=== PATIENT | male | born 1955 | race Caucasian/White ===

== ENCOUNTER 2016-12-09 16:20 | Emergency (ER) | payer BC ==
[2016-12-09] MEDS ORDERED: NITROGLYCERIN 0.4 MG/TAB BTL SL PRN (16:36)
--- OUTSIDE RECORDS SUMMARY | 2016-12-09 16:47 | XMS REPORT | Continuity of Care Document ---
:1955 Author Organization [facility] ([facility]) Address [address] [place] [address] Phone [phone] Care Team Providers Name Role Phone Rojelio Fraire Primary Care Provider [phone] Source Comments This disclosure is being made pursuant to the Care Everywhere program, applicable federal and state laws, and may not contain all informaitonavailable regarding this patient.[facility] ([facility]) Active Allergies and Adverse Reactions No Known Allergies Current Medications Prescription Sig. Disp. Refills Start Date End Date Status lisinopril 20 mg Take 20 mg by mouth Active tablet daily. levothyroxine 100 Take 112 mcg by mouth Active mcg tablet every morning before breakfast. testosterone Inject 200 mg Active enanthate intramuscularly every (DELATESTRYL) 200 14 days. Not taking mg/mL injection omega-3 fatty acids Take 2 g by mouth 2 Active (lovaZA) 1 gram times daily. Not capsule taking zolpiDEM 5 mg Take 5 mg by mouth at Active tablet bedtime as needed. LOVASTATIN PO Take 20 mg by mouth Active daily. gabapentin 300 mg Take 300 mg by mouth 3 12/12/2015 Active capsule at bedtime. glimepiride 2 mg 3 12/10/2015 Active tablet omeprazole 20 mg XR Take 20 mg by mouth Active tablet daily. BOOSTRIX TDAP Inject 0.5 mL 0 03/17/2016 Active 2.5-8-5 intramuscularly once. Lf-mcg-Lf/0.5mL Not taking susp oxyCODONE-acetamino Take 1-2 tablets by 30 tablet 0 05/01/2016 Active phen 5-325 mg per mouth every 4 hours tablet as needed for pain.Do NOT exceed 4000 mg of acetaminophen per 24 hours. tobramycin-dexameth Instill 1-2 Drops 5 mL 0 05/07/2016 Active asone 0.3-0.1 % onto both eyes 2 ophthalmic times daily. 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 Most Recent Encounters Date Type Specialty Providers Description 10/06/2016 Office Visit Jake Diez MD Chief Comp: Patient Reported Reason For Visit 09/29/2016 Office Visit Jake Diez MD Dx: S/P blepharoplasty (Primary Dx) Social History Tobacco Use Types Packs/Day Years Used Date Never Smoker Smokeless Tobacco: Never Used Tobacco Cessation:Counseling Given: Yes Comments: Alcohol Use Drinks/Week oz/Week Comments No Last Filed Vital Signs Vital Sign Reading Time Taken Blood Pressure 131/79 05/01/2016 12:00 PM CDT Pulse 83 05/01/2016 6:06 AM CDT Temperature 35.4 C (95.7 F) 05/07/2016 10:42 AM CDT Respiratory Rate 20 05/01/2016 11:41 AM CDT Height 1.803 m (5' 11") 04/28/2016 10:27 AM CDT Weight 115.2 kg (253 lb 15.5 oz) 05/01/2016 6:06 AM CDT Body Mass Index 35.44 05/01/2016 6:06 AM CDT Oxygen Saturation 96% 05/01/2016 12:00 PM CDT Plan of Care Health Maintenance Due Date Last Done Comments HCV Screening 1955 Hepatitis B Vaccine (1 of 3 - Primary Series) 1955 Tdap Vaccine 1967 DIABETIC: Cholesterol 1974 Diabetic: Hdl 1974 DIABETIC: Hemoglobin A1C 1974 Diabetic: Ldl 1974 DIABETIC: Microalbumin 1974 DIABETIC: Triglycerides 1974 MMR Vaccine 1974 Td Vaccine 1974 Pneumococcal Vaccine (1 of 1 - PPSV23) 1975 Colonoscopy 2006 Prostate Cancer Screening 2006 DIABETIC: Foot Exam 01/28/2016 DIABETIC: Retinal Eye Exam 01/28/2016 Influenza Vaccine: Seasonal (#1) 03/10/2016 Zoster Vaccine 2016 Results from Last 3 Months Not on file
--- NOTE | 2016-12-09 16:52 | ERNOTE ---
Chest Pain/Cardiac HPI Chief Complaint: Chest Pain Time Seen by Provider: 12/09/16 16:25 Source: patient Exam Limitations: no limitations Immunizations: IMMUNIZATION HX Immunizations Up to Date Yes Allergies/Adverse Reactions: Allergies No Known Allergies Allergy (Verified 12/09/16 16:34) Home Medications: HOME MEDICATIONS Levothyroxine Sodium [Synthroid] 112 mcg PO DAILY 06/26/12 [Last Taken 07/20/13 06:00] Lisinopril 20 mg PO DAILY 06/26/12 [Last Taken 07/20/13 06:00] Lovastatin 20 mg PO DAILY 06/26/12 [Last Taken 07/22/13 03:00] Testosterone Cypionate [Depo-Testosterone] 200 mg IM Q14D 05/30/13 [Last Taken 07/13/13 19:00] Zolpidem Tartrate [Ambien Cr] 12.5 mg PO HS PRN 05/30/13 [Last Taken Unknown] Gabapentin [Neurontin] 300 mg PO DAILY 04/12/16 [Last Taken Unknown] Glimepiride [Amaryl] 2 mg PO DAILY 04/12/16 [Last Taken Unknown] Omeprazole 20 mg PO DAILY 04/12/16 [Last Taken Unknown] Narrative: Patient has had increasing chest pain for about two months. At first the chest pain occurred once a week, over the last week he has had daily chest pain. It started today when he woke up this morning at 04:30, waxes and wanes, central pain, currently at 1/10, max 2/10. 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 Denies : heart attack, cardiac cath Review of Systems - Review of Systems Constitutional: Absent: recent illness ENT: Present: nose congestion Respiratory: Present: shortness of breath - with exertion. Absent: cough Cardiology: Present: See HPI, chest pain Gastrointestinal/Abdominal: Absent: nausea, vomiting, diarrhea, abdominal pain Genitourinary: Present: no symptoms reported Neurological: Absent: weakness, numbness - Patient's Past Medical History Patient History - Medical: Diabetes Type 2, GERD - gastroparesis, Hypothyroidism Patient History - Cardiac/Respiratory: Hypertension, Hyperlipidemia Patient History - Cancer: No Hx of Cancer Patient History - Surgical Procedures: Back Surgery, Cataracts, Colonoscopy, T & A, Other Patient History - Other: None - Social History Living Situations: home Psych History: No pertinent hx Smoking Status: Never smoker Alcohol Use: rarely Drug Use: none - Immunizations Immunizations Up to Date: Yes Physical Exam - Physical Exam General Appearance: Present: wd/wn, alert, no apparent distress, obese Eye Exam: Normal inspection: bilateral Ears, Nose, Throat: Present: normal pharynx Respiratory: Present: no respiratory distress, no accessory muscle use, chest nontender, lungs clear, decreased breath sounds Cardiovascular/Chest: Present: regular rate, rhythm Gastrointestinal/Abdominal: Present: nontender, nondistended, soft Extremity Exam: Present: no edema Neurological Exam: Present: alert, oriented, normal mood/affect Skin Exam: Present: normal color, warm/dry ED Progress - Results and Orders Patient's Lab Results:: I have reviewed the patient's lab results. - Vital Signs Patient's Vital Signs:: I have reviewed the patient's vital signs. Vital Signs: Vital Signs 12/09/16 16:25 Temperature 36.6 C Pulse Rate 79 Respiratory 16 Rate Blood Pressure 162/86 O2 Sat by Pulse 97 Oximetry - EKG EKG: NSR, unchanged from - 2012, other - no acute changes EKG read: Interp. by me - X-Ray X-Ray #1 X-Ray: chest - hyperinflated, no acute changes Interpretation: Interp. by me - Progress/Reassessment Chief Complaint: Chest Pain Progress Note-Subjective: 12/09/16 17:10 no relieve of chest pain with nitro, now has headache from nitro, offered other pain meds patient declined 12/09/16 17:38 unchanged minimal pain, discussed test results and limitation of test to rule out CAD ,offered admission,patient declined, understands risk of and ND Departure - Departure Clinical Impression: Chest pain Qualifiers: Chest pain type: precordial pain Qualified Code(s): R07.2 - Precordial pain Disposition: Home self-care Condition: Good Instructions: Chest Pain Observation Additional Instructions: call your doctor first thing tomorrow follow up as you will most likely need another stress test, return to the ER at any time for worsening pain or any other additional symptoms Referrals: Rojelio Fraire DO [Primary Care Provider] -
[2016-12-09 16:53] LABS: Hematocrit 50.6 % (42.0-52.0); Hemoglobin 17.9 gm/dL (13.5-18.0); Mean Cell Volume 92.2 fl (78-100); Mean Corpuscular Hemoglobin 32.6 pg (27-31); Mean Corpuscular Hgb Conc 35.4 g/dl (32-36); Mean Platelet Volume 9.6 fl (6.0-9.5); Neutrophil # 4.9 K/mm3 (1.3-6.0); Neutrophil % 61.5 % (42-75.0); Platelet Count 114 K/mm3 (150-450); Red Blood Count 5.49 M/mm3 (4.7-6.0); Red Cell Distribution Width 13.3 % (11.5-14.0)
[2016-12-09 17:06] LABS: Prothrombin Time (Patient) 10.7 Seconds (9.4-11.4)
[2016-12-09 17:07] LABS: INR 1.03 INR (0.90-1.10); Partial Thrombolplastin Time 25.8 Seconds (24-32)
[2016-12-09 17:13] LABS: ALT 43 U/L (19-67); AST 25 U/L (0-48); Albumin * 3.8 gm/dl (3.4-5.0); Alkaline Phosphatase * 70 U/L (50-170); Anion Gap 15.9 mmol/L (6.8-13.8); BUN/Creatinine Ratio 10.7 (9.0-21.6); Bilirubin, Total 0.6 mg/dL (0.0-1.1); Blood Urea Nitrogen 15 mg/dL (6-23); Ca. Corrected For Albumin 8.6 mg/dL (8.4-10.2); Calcium * 8.8 mg/dL (7.9-10.9); Chloride 105 mmol/L (97-106); Glucose * 176 mg/dL (70-110); Potassium 3.9 mmol/L (3.4-4.6); Sodium 144 mmol/L (132-142); Total Protein 6.9 gm/dL (6.2-8.2); Troponin I Less than 0.017 ng/ml (0.00-0.10)
[2016-12-09 17:32] VITALS: BP 140/80
== END 2016-12-09 17:46 | disposition home or self-care (01) ==
LOC: ER 16:20
DX: R07.2 Precordial pain (principal); E03.9 Hypothyroidism, unspecified; E78.5 Hyperlipidemia, unspecified; I10 Essential (primary) hypertension; E11.9 Type 2 diabetes mellitus without complications

== ENCOUNTER 2017-06-26 15:43 | Emergency (ER) | payer BC ==
[2017-06-26] MEDS ORDERED: MORPHINE SULFATE 4 MG/ML SYRG ONE (16:59)
[2017-06-26] MEDS: MORPHINE SULFATE 4 MG/ML SYRG IM ONE (17:01)
[2017-06-26 17:11] VITALS: BP 154/86
--- NOTE | 2017-06-26 18:01 | ERNOTE ---
Upper Extremity HPI - Narrative Date of Service: 06/26/17 - General Extremities Pain Location: shoulder: right Time Seen by Provider: 06/26/17 16:03 Source: patient Exam Limitations: no limitations - Immun/Allergies/Home Medications Immunizations: IMMUNIZATION HX Immunizations Up to Date Yes Allergies/Adverse Reactions: Allergies Allergy/AdvReac Type Severity Reaction Status Date / Time No Known Allergies Allergy Verified 06/26/17 15:51 Home Medications: HOME MEDICATIONS Levothyroxine Sodium [Synthroid] 112 mcg PO DAILY 06/26/12 [Last Taken 07/20/13 06:00] Lisinopril 20 mg PO DAILY 06/26/12 [Last Taken 07/20/13 06:00] Lovastatin 20 mg PO DAILY 06/26/12 [Last Taken 07/22/13 03:00] Testosterone Cypionate [Depo-Testosterone] 200 mg IM Q14D 05/30/13 [Last Taken 07/13/13 19:00] Zolpidem Tartrate [Ambien Cr] 12.5 mg PO HS PRN 05/30/13 [Last Taken Unknown] Gabapentin [Neurontin] 300 mg PO DAILY 04/12/16 [Last Taken Unknown] Glimepiride [Amaryl] 2 mg PO DAILY 04/12/16 [Last Taken Unknown] HYDROcodone/ACETAMINOPHEN [Arden 5-325] 1 tab PO Q6H PRN #25 tab 06/26/17 [Last Taken Unknown] - History of Present Illness Narrative: patient presents after fall from second rung of a step ladder. Fell onto right arm. Hit his head but no LOC. No neck or back pain. Pain right shoulder, right elbow and right wrist. Pain severe right shoulder. Shoulder is primary site of pain. Pain worse with any movement. dT UTD. Abrasion right mullen but no LE pain. Has not seen anyone else for this. Occurred: just prior to arrival Location of Incident: home Severity: severe Method of Injury: Reports: fell, direct blow Reason for Fall: Reports: lost balance Loss of Consciousness: Reports: no loss of consciousness Modifying Factors - (Improves): Reports: rest Modifying Factors - (Worsens): Reports: movement Associated Symptoms: Denies: tingling, weakness, numbness distally, loss of feeling Other Injuries: Reports: head Prior Treament: Denies: recently seen Review of Systems - Review of Systems Constitutional: Absent: fever Respiratory: Absent: shortness of breath Cardiology: Absent: chest pain Gastrointestinal/Abdominal: Absent: abdominal pain Musculoskeletal: Present: See HPI Neurological: Absent: weakness - Patient's Past Medical History Patient History - Medical: Diabetes Type 2, GERD, Hypothyroidism Patient History - Cardiac/Respiratory: Hypertension, Hyperlipidemia Patient History - Cancer: No Hx of Cancer Patient History - Surgical Procedures: Back Surgery, Cataracts, Colonoscopy, T & A, Other Patient History - Other: None - Social History Living Situations: home Psych History: No pertinent hx Alcohol Use: none Drug Use: none - Immunizations Immunizations Up to Date: Yes Physical Exam - Physical Exam General Appearance: Present: alert, no apparent distress Head Exam: Present: other - hematoma forehead with abrasion. No otorrhea or rhinorrhea. Absent: Haq's Sign Eye Exam: Normal inspection: bilateral, PERRL: bilateral Ears, Nose, Throat: Present: normal ENT inspection Neck: Present: normal inspection, nontender, other - no clinical suggestion of fracture or ligamenous injury. Absent: tender posterior midline Respiratory: Present: no respiratory distress, normal breath sounds, no accessory muscle use, lungs clear Cardiovascular/Chest: Present: regular rate, rhythm, normal peripheral pulses, other - strong radial pulse Gastrointestinal/Abdominal: Present: normal bowel sounds, nontender, nondistended, soft Back Exam: Present: no vertebral tenderness Extremity Exam: Present: other - Tenderness right shoulder with minimal ROM. Mild tendenress right wrist diffusely and mild olecranon tendenress. Abrasion right tib/fib but no other orthopedic tenderness. No compartment syndrome. Strong pulses. Neurological Exam: Present: alert, no motor/sensory deficits, other - pain limts exam but no clear acute focal motor or sensort deficits. Skin Exam: Present: normal color, warm/dry, other - no laceration found. ABrasions noted. no clear evidence of open fracture ED Progress - Vital Signs Patient's Vital Signs:: I have reviewed the patient's vital signs. Vital Signs: Vital Signs 06/26/17 06/26/17 15:46 17:11 Temperature 36.5 C Pulse Rate 80 86 Respiratory 12 12 Rate Blood Pressure 161/95 154/86 O2 Sat by Pulse 97 98 Oximetry - X-Ray X-Ray #1 X-Ray: shoulder Interpretation: Interp. by me X-ray Comments: I reviewed official radiology report. X-Ray #2 X-Ray: elbow Interpretation: Interp. by me X-ray Comments: I reviewed official radiology report X-Ray #3 X-Ray: wrist Interpretation: Interp. by me X-ray Comments: I reviewed official radiology report - CT/Ultrasound CT/Ultrasound Narrative: I reviewed official radiology report - Progress/Reassessment Chief Complaint: Shoulder Injury/Pain Progress Note-Subjective: 06/26/17 18:21 I spoke with Alex Michelle who was executive search consultant for ortho. He reviewed the x-rays and recommends shoulder immobilizer with office f/u. Pt given IM Moprhine. Pt agreeable to ortho plan. i discussed warning signs and reasons to return as well as the need for close f/u. Departure Clinical Impression: Fracture, humerus, Fall, Head injury - Departure Disposition: Home self-care Condition: Stable Instructions: Humerus Fracture Treated With Immobilization Additional Instructions: Shoulder immobilizer. No driving with pain medications. I have spoken with Orthopedics, they have reviewed your x-rays and wish to see you in the office. Please follow-up as directed. Return for numbness, tingling, weakness, increased pain or if your condition worsens or changes in any way. Referrals: Rojelio Fraire DO [Primary Care Provider] - Prescriptions: HYDROcodone/ACETAMINOPHEN [Arden 5-325] 1 tab PO Q6H PRN #25 tab PRN Reason: Pain
== END 2017-06-26 17:57 | disposition home or self-care (01) ==
LOC: ER 15:43
PROC: 2W3AXYZ Immobilization of Right Upper Arm using Other Device (ICD-10-PCS; principal; 2017-06-26)
DX: M84.421A Pathological fracture, right humerus, initial encounter for fracture (principal); S09.90XA Unspecified injury of head, initial encounter; W11.XXXA Fall on and from ladder, initial encounter; Y93.9 Activity, unspecified; Y92.009 Unspecified place in unspecified non-institutional (private) residence as the place of occurrence of the external cause; E11.9 Type 2 diabetes mellitus without complications; K21.9 Gastro-esophageal reflux disease without esophagitis; E03.9 Hypothyroidism, unspecified; I10 Essential (primary) hypertension; E78.5 Hyperlipidemia, unspecified

== ENCOUNTER 2017-07-07 09:49 | Day surgery (SDC) | payer BC ==
[~2017-07-07 09:49] MED LIST: RINGER'S SOLUTION,LACTATED 1,000 ML IV PRN; ceFAZolin SODIUM 1 GM VIAL IV PRN
[2017-07-07] MEDS ORDERED: RINGER'S SOLUTION,LACTATED 1,000 ML IV ONE (12:50)
--- NOTE | 2017-07-07 14:34 | OR ---
Anesthesia Procedure Note - Anesthesia Procedure Note Date of Service: 07/07/17 Narrative: Vital Signs - Last Taken Temp 36.8 C 07/07/17 14:20 Pulse 96 07/07/17 14:30 Resp 20 07/07/17 14:30 BP 161/78 07/07/17 14:30 Pulse Ox 95 07/07/17 14:30 O2 Oxygen Delivery Method Nasal Cannula 07/07/17 14:33 ANESTHESIA PROCEDURE NOTE Date of Procedure: 07/07/2017 Time of procedure: 11:10 AM. Performed by: ERNST Mathias CRNA, MSN Electric Sign Wirer: Leidy De Paz RN. Preprocedure diagnosis: Post right shoulder surgery pain relief. Post procedure diagnosis: Same. Procedure: Right Interscalene nerve block. Indications: Post open reduction internal fixation of right proximal humerus surgery pain relief. Findings: See below. Details of the procedure: The patient was brought to OR #2 and placed in semi- Fowlers position. The patient was prepped with chlorhexidine and using ultrasound guidance the right interscalene segment of the brachial plexus was identified and lidocaine 1% was infiltrated to the skin of the intended injection site. Under ultrasound guidance the interscalene nerve bundles were approached with visualization of a 2inch stimulator needle visualized unde ultrasound until a shoulder/arm response was identified on nerve stimulator. Once the stimulator response was effective at less than 0.5 mV and greater than 0.3 mV the bracheal plexus nerves at this level were surrounded with 30 mL bupivacaine 0.25% with 1-200,000 epinephrine. Please see radiology/ultrasound report for details and retained images of the procedure. EBL: 0 Fluids: N/A. Specimen: N/A. Post procedure condition: The patient tolerated the procedure well. No complications were noted. Thank you for this consultation. Boyd Patel CRNA, YARN CAR[employer]ER, MSN
[2017-07-07 16:47] VITALS: BP 142/71
--- NOTE | 2017-07-17 15:22 | OR ---
Operative Report - Dictated Report Narrative: Date: 07/07/2017 Surgeon: Hunter Cleveland M.D. Sewing Machine Operator Plastic Zipper: Alex Michelle PA-C Anesthesia: General plus interscalene nerve block Preoperative diagnosis: Right 3-part proximal humerus fracture Postoperative diagnosis: Right 3 part proximal humerus fracture involving the anatomic neck and greater tuberosity Procedure: 1. Open reduction internal fixation right 3 part proximal humerus fracture. 2. Intra-operative interpretation of radiographs. Estimated blood loss: 250 ml Retained implants: [employer] Nephew 3.5 mm 3-hole proximal humerus plate with associated screws Specimens: None Complications: None Indications: Shay is a 62-year-old male who fell resulting in a injury to the right shoulder. They were seen in the emergency department with images obtained revealing the above injury. He was then seen in orthopedic clinic where a CT scan of the right shoulder was obtained. This demonstrated a 3 part proximal humerus fracture involving impaction at the anatomic neck and displacement of the greater tuberosity. The risks, benefits, and treatment options were discussed with the patient and the plan for open reduction internal fixation of the right proximal humerus was discussed. Risks were reviewed including , blood clots, nerve/tendon/blood vessel injury, malunion, nonunion, failure of implants, prominent implants, arthrosis, persistent pain, need for additional procedures. Procedure: The patient was seen in the preoperative holding area where we again discussed the risks and benefits surgery and after this discussion he wished to proceed. His right shoulder was initialed. He was then brought back to the operating room. After a timeout, 2 g of Ancef was administered. The anesthesia provider then performed an interscalene nerve block on the right. Next general anesthesia was induced without complication. The patient was placed in the beachchair position with a department head. All bony prominences were well-padded. The right upper extremity was then prepped and draped in the usual sterile fashion using a shoulder pack. We turned our attention to the right shoulder. A standard deltopectoral approach was utilized to gain access to the fracture. An approximately 12 cm incision was made from the coracoid process along the deltopectoral groove. A combination of blunt dissection and electrocautery was used to dissect down to the level of the deltopectoral fascia. The deltopectoral interval was identified as was the cephalic vein. The cephalic vein was mobilized and retracted laterally along with the deltoid and the pectoralis major was retracted medially. The clavipectoral fascia was identified as was the conjoined tendon, which was also retracted medially. Adhesions between the deltoid and the rotator cuff were broken up with blunt finger dissection. We immediately encountered the displaced greater tuberosity fragment and the fracture edges were cleaned up with a sharp knife to reveal our fracture leads. A Casanova elevator was used to unlock and free up the greater tuberosity fragment. The supraspinatus, infraspinatus, and teres tendons were all still attached to the fragment. At this point a Casanova elevator was used to disimpact the humeral head. At this point heavy nonabsorbable sutures were placed through the infraspinatus tendons and the subscapularis tendon. The greater tuberosity fragment was then reduced and held in place with a Uriah wire. We then tied our sutures from the infraspinatus and the subscapularis together to help hold the reduction. Our reduction was checked via fluoroscopy and noted to be acceptable. There was still a slight amount of humeral head impaction that we were unable to completely restore. At this point we chose a 3 hole Quez[employer] Nephew proximal humerus plate which was held in proper position with one Uriah wire. We then placed all of the proximal locking screws into the humeral head under fluoroscopic guidance to ensure no penetration into the joint. Next 3 distal nonlocking screws were placed through the plate and into the humeral shaft. The position and length of all of our screws was again checked via fluoroscopic guidance to ensure no penetration into the joint and to ensure adequate reduction and alignment. At this point we were happy with the alignment of the fracture and our fixation. The wound was copiously irrigated with normal saline and closed in a layered fashion. 0 Vicryl was used to run the deltopectoral fascia. Skin was then closed in a layered fashion using 3-0 Vicryl in an interrupted deep dermal fashion followed by everardo to close the skin. Wound was dressed with Xeroform, 4 x 4's, and an ABD. All sponge, needle, and instrument counts were correct at the end of the case. The patient was awoken from general anesthetic without complication and taken to the PACU in stable condition.
== END 2017-07-07 09:50 | disposition home or self-care (01) ==
LOC: AMB 09:49
PROVIDERS: ATTEND Orthopaedic Surgery
PROC: 0PSC04Z Reposition Right Humeral Head with Internal Fixation Device, Open Approach (ICD-10-PCS; 2017-07-07)
PROC: 3E0T3BZ Introduction of Anesthetic Agent into Peripheral Nerves and Plexi, Percutaneous Approach (ICD-10-PCS; principal; 2017-07-07 13:10)
DX: S42.291A Other displaced fracture of upper end of right humerus, initial encounter for closed fracture (principal); S42.251A Displaced fracture of greater tuberosity of right humerus, initial encounter for closed fracture; S90.121A Contusion of right lesser toe(s) without damage to nail, initial encounter; E11.9 Type 2 diabetes mellitus without complications; I10 Essential (primary) hypertension; E78.5 Hyperlipidemia, unspecified; E03.9 Hypothyroidism, unspecified; K21.9 Gastro-esophageal reflux disease without esophagitis; G47.00 Insomnia, unspecified; Z68.34 Body mass index [BMI] 34.0-34.9, adult; W10.8XXA Fall (on) (from) other stairs and steps, initial encounter